=== PATIENT | female | born 1950 | race Caucasian/White ===

== ENCOUNTER 2016-08-02 07:20 | Day surgery (SDC) | payer MEDICARE ==
[2016-07-29 15:48] LABS: HEMATOCRIT 39.1 % (36.0-48.0); HEMOGLOBIN 13.2 g/dL (12.0-16.0)
[2016-07-29 16:06] LABS: CALCIUM, SERUM 8.9 MG/DL (8.5-10.4); CHLORIDE, SERUM 99 MMOL/L (96-112); GFR AFRICAN AMERICAN 78 ML/MIN (>=60); GFR NON AFRICAN AMERICAN 67 ML/MIN (>=60); GLUCOSE, SERUM 200 MG/DL (60-99); SODIUM, SERUM 138 MMOL/L (135-148)
[2016-07-29 16:08] LABS: BUN (BLOOD UREA NITROGEN) 26 MG/DL (6-23); CO2 (CARBON DIOXIDE) 24 MMOL/L (24-34); POTASSIUM, SERUM 4.9 MMOL/L (3.5-5.3)
--- NOTE | ~2016-08-02 | OP ---
Record Of Operation [facility] [address] [place]. [address] NAME: SARAH MEREDITH : 52 STATUS : [facility]#: [id number] AGE: 66 ADM/REG DATE : 08/02/16 MR#: [id number] REPORT SERV DATE: 08/02/16 DICTATED BY: GIOVANNY GOMES DATE: 08/02/16 REPORT STATUS : Draft TRANSCRIBED BY: MODL DATE: 08/02/16 DATE OF PROCEDURE: 08/02/2016 PREOPERATIVE DIAGNOSIS: Left facial abscess. POSTOPERATIVE DIAGNOSIS: Left facial abscess. PROCEDURE: Incision and drainage of facial abscess. SURGEON: Giovanny Gomes M.D. ANESTHESIA: General. COMPLICATIONS: None. COUNTS: All counts correct following the procedure. ESTIMATED BLOOD LOSS: Minimal. PREOPERATIVE INFORMED CONSENT: We discussed the risks and benefits of the surgery including, but not limited to bleeding, infection, possible facial nerve injury. Consent is on the chart. PROCEDURE IN DETAIL: The patient was brought to the operating suite, placed on the operating room table in supine position. General endotracheal anesthesia was initiated without incident. The left face was cleaned and prepped in the usual sterile fashion. Following this, a 15 blade scalpel was used to make about a 1.5 cm to 2 cm incision over the lesion in question. There was clear fluid emitted from the abscess cavity. This was cultured and sent for Gram stain and C and S. There was multiple loculations which were connected with the main incision using hemostat and then the abscess cavity was copiously irrigated with sterile saline until clear, and then the cavity was then packed with iodoform gauze followed by Telfa and a fluff dressing. The patient was awakened from anesthesia and taken to the recovery room in stable condition. KAUSHIK/TEGAN Giovanny Gomes M.D. / [id number] CC: Eliseo Graves M.D.
[~2016-08-02 07:20] MED LIST: ACET500CAP PO; ALEVE220 MG PO; ALLER-CHLOR4 MG PO; ASAB PO; CALTRA600D PO; CALTRAT600 PO; COMBIGAN OPH; COREG3 PO; CRANBERRY1 TAB OR; DIL2TAB PO; HUMALOG SC; IMU PO; LANTUS SC; LIPITOR40 PO; MELATONIN5 M1 PO; METHOC500B PO; MULTIPLE VIT PO; NOVLOGPUMP SC; P5 PO; PRAVACHOL40 MG PO; PRILO PO; ULTRAM50 PO; V2 PO
== END 2016-08-02 11:55 | disposition home or self-care (01) ==
LOC: SDC 07:20
PROVIDERS: Otolaryngology
PROC: 0H91XZZ Drainage of Face Skin, External Approach (ICD-10-PCS; principal; 2016-08-02 08:45)
DX: L02.01 Cutaneous abscess of face (principal); E78.00 Pure hypercholesterolemia, unspecified; E11.9 Type 2 diabetes mellitus without complications; K21.9 Gastro-esophageal reflux disease without esophagitis; Z95.5 Presence of coronary angioplasty implant and graft; Z88.5 Allergy status to narcotic agent; Z96.41 Presence of insulin pump (external) (internal); Z88.0 Allergy status to penicillin; I25.2 Old myocardial infarction; Z86.73 Personal history of transient ischemic attack (TIA), and cerebral infarction without residual deficits; Z79.82 Long term (current) use of aspirin; Z79.4 Long term (current) use of insulin; Z79.899 Other long term (current) drug therapy
CPT/HCPCS: 80048; 82962; 85014; 85018; 87015; 87070; 87075; 87102; 87116; 87205; 93005; A9270-GY; J2250; J2370; J2405; J2710; J3010